=== PATIENT | female | born 1990 | race Caucasian/White ===

== ENCOUNTER → 2016-09-26 | Outpatient (CLI) | payer MEDICAID | LOC: FIMAGING 11:35 | PROVIDERS: ATTEND Internal Medicine | DX: K70.10 Alcoholic hepatitis without ascites (principal); Z01.818 Encounter for other preprocedural examination ==

== ENCOUNTER → 2016-10-31 | Outpatient (CLI) | payer MEDICAID | LOC: CIMAGING 07:24 | PROVIDERS: ATTEND Internal Medicine | DX: K70.10 Alcoholic hepatitis without ascites (principal) | CPT/HCPCS: 76700-PO ==

== ENCOUNTER → 2017-01-02 | Outpatient (CLI) | payer MEDICAID | LOC: CIMAGING 17:51 | PROVIDERS: ATTEND Internal Medicine | DX: K80.20 Calculus of gallbladder without cholecystitis without obstruction (principal) | CPT/HCPCS: 76700-PO ==

== ENCOUNTER → 2017-01-24 | Outpatient (CLI) | payer MEDICAID | LOC: FIMAGING 11:51 | PROVIDERS: ATTEND Internal Medicine | DX: K70.10 Alcoholic hepatitis without ascites (principal) ==